=== PATIENT | male | born 1980 | race African-American/Black ===

== ENCOUNTER 2018-10-07 09:58 | Emergency (ER) | payer MEDICAID, OTHER ==
[2018-10-07 10:07] VITALS: BP 134/86
--- NOTE | 2018-10-07 10:23 | UC ---
Cardiac HPI - HPI Summary HPI Summary: The patient is a 37-year-old male who presents here for evaluation of mild chest discomfort which has been a daily occurrence for greater than 1 month. The patient states he works out daily. He lifts weights and runs. The discomfort does not worsen during his exercise. The discomfort is mild. States that he has been under a lot of stress lately as he is going through a divorce and custody love. He states he wants to make sure that he is healthy. He states that his blood pressure has been running a little higher than normal. He denies any shortness of breath. He denies any abdominal pain. He denies any nausea vomiting or diarrhea. Not had any diaphoresis. - History of Current Complaint Chief Complaint: UCChestPain Stated Complaint: CHEST PAIN Time Seen by Provider: 10/07/18 10:03 Hx Obtained From: Patient Onset/Duration: Gradual Onset, Lasting Weeks Timing: Constant Initial Severity: Mild Current Severity: Mild Pain Intensity: 2 Chest Pain Location: Discrete at: - sternal Character: Dull/Aching Aggravating Factor(s): Nothing Alleviating Factor(s): Nothing Associated Signs & Symptoms: Positive: Chest Pain - Allergy/Home Medications Allergies/Adverse Reactions: Allergies Allergy/AdvReac Type Severity Reaction Status Date / Time "Chloroquin or something Allergy Itching Uncoded 10/07/18 10:05 nemo" Home Medications: Home Medications NK [No Home Medications Reported] 10/07/18 [History Confirmed 10/07/18] PMH/Surg Hx/FS Hx/Imm Hx Previously Healthy: Yes - Surgical History Surgical History: None - Family History Known Family History: Negative: Cardiac Disease, Hypertension, Diabetes - Social History Alcohol Use: None Substance Use Type: None Smoking Status (MU): Never Smoked Tobacco Review of Systems All Other Systems Reviewed And Are Negative: Yes Constitutional: Positive: Negative Skin: Positive: Negative Eyes: Positive: Negative ENT: Positive: Negative Respiratory: Positive: Negative Cardiovascular: Positive: Chest Pain Gastrointestinal: Positive: Negative Genitourinary: Positive: Negative Motor: Positive: Negative Neurovascular: Positive: Negative Musculoskeletal: Positive: Negative Neurological: Positive: Negative Psychological: Positive: Negative Physical Exam Triage Information Reviewed: Yes Appearance: Well-Appearing, No Pain Distress, Well-Nourished Vital Signs: Initial Vital Signs Temp 97.9 F 10/07/18 10:01 Pulse 53 10/07/18 10:01 Resp 16 10/07/18 10:01 BP 134/86 10/07/18 10:01 Pulse Ox 100 10/07/18 10:01 Vital Signs Reviewed: Yes Eyes: Positive: Conjunctiva Clear ENT: Positive: Hearing grossly normal, Uvula midline. Negative: Nasal congestion, Nasal drainage, Trismus, Muffled voice, Hoarse voice Neck: Positive: Supple, Nontender, No Lymphadenopathy Respiratory: Positive: Lungs clear, Normal breath sounds, No respiratory distress, No accessory muscle use. Negative: Chest non-tender Cardiovascular: Positive: RRR, No Murmur Abdomen Description: Positive: Nontender, No Organomegaly. Negative: CVA Tenderness (R), CVA Tenderness (L) Bowel Sounds: Positive: Present Musculoskeletal: Positive: ROM Intact, No Edema Neurological: Positive: Alert Psychological Exam: Normal Skin Exam: Normal - Clinical Impression Provider Diagnosis: Chest wall pain, Elevated BP without diagnosis of hypertension Discharge - Sign-Out/Discharge Documenting (check all that apply): Patient Departure All imaging exams completed and their final reports reviewed: No Studies - Discharge Plan Condition: Stable Disposition: HOME Patient Education Materials: Chest Wall Pain (ED) Additional Instructions: see you MD in 2-12 weeks for BP recheck heating pad may help tylenol recheck for new or worsening symptoms - Billing Disposition and Condition Condition: STABLE Disposition: Home
== END 2018-10-07 10:51 | disposition home or self-care (01) ==
LOC: UCCORT 09:58
DX: R07.89 Other chest pain (principal); R03.0 Elevated blood-pressure reading, without diagnosis of hypertension
CPT/HCPCS: 93005; 99201; G0463